=== PATIENT | male | born 1940 | race Caucasian/White ===

== ENCOUNTER 2017-01-29 11:18 | Observation (INO) | payer MEDICARE ==
[2017-01-29] MEDS: Heparin VIAL(*) 5000 UNITS/ML VIAL (FIVE THOUSAND) SUBCUT SCH ×2 (14:36→21:26)
--- NOTE | 2017-01-29 16:52 | HP ---
CC: Flores Dye NP * HISTORY AND PHYSICAL: DATE OF ADMISSION: 01/29/17 PRIMARY CARE PROVIDER: Flores Dye NP CHIEF COMPLAINT: Chest pain. HISTORY OF PRESENT ILLNESS: Mr. Cabrera is a 76-year-old male with a known history of extensive tobacco use quitting in 1984, asthma, and questionable history of diabetes, presented to the emergency room at [facility] with complaints of chest pain. The patient states that at approximately 9:10 on the morning of admission, he began to have pain located in the center of his chest. He states that it radiated up in to his jaw and into the roof of his mouth. He also notes the pain radiated down into his elbows. The patient states that the pain persisted despite 3 nitroglycerin tablets at [facility] and only with morphine did the pain completely go away. He estimates that the pain went away around 1:20 p.m. on the day of admission. The patient denies any associated shortness of breath, nausea, or diaphoresis. The patient states that this past Thursday, he had a similar episode lasting approximately 30 minutes. He described it as not as severe as this episode. The patient's daughter fills in that he may have had a similar episode several months ago. The patient states that 4 to 5 years ago, he had something similar and underwent a stress test that was reportedly negative. PAST MEDICAL HISTORY: 1. Hypertension. 2. Hyperlipidemia. 3. COPD. 4. Neuropathy of the feet. 5. Possible diabetes. PAST SURGICAL HISTORY: 1. Bilateral shoulder surgeries. 2. Left knee arthroscopy. 3. Sinus surgery. 4. Right foot surgery. 5. Cholecystectomy. MEDICATIONS: Unknown. ALLERGIES: PENICILLIN and WARFARIN. FAMILY HISTORY: Mom of some sort of lung disease. Dad at the age of 71 of some sort of cancer. SOCIAL HISTORY: The patient is a former smoker, smoking 3 packs per day x40 years. He does not drink alcohol. He is retired from [employer]. His skein tier of over 30 years recently. He lives alone. He has 2 children. His children, Maylin and Derrick, are his healthcare proxies. REVIEW OF SYSTEMS: A complete 11-system review of systems is obtained. Pertinent positives and negatives are as per HPI and otherwise negative. PHYSICAL EXAMINATION GENERAL: The patient is a well-developed elderly male, sitting in a chair, in no acute distress. VITAL SIGNS: Blood pressure 137/73, pulse 65, respirations 16, temp 98.5, and O2 sat 96% on room air. HEENT: Pupils are equal, they are round. Extraocular muscles are intact. Oropharynx is clear. Oral mucosa is moist. There is no submandibular, cervical , or supraclavicular adenopathy. Thyroid is not enlarged. No thyroid nodules are noted. PULMONARY: Lungs are clear to auscultation bilaterally, though breath sounds are slightly diminished. CARDIAC: Normal S1 and S2. Regular rate and rhythm. I do not appreciate any murmurs. There is trace lower extremity edema. ABDOMEN: Bowel sounds are present. Abdomen is soft, nontender, and nondistended. MUSCULOSKELETAL: There is no cyanosis or clubbing of the digits. There is full active range of motion of all 4 extremities. SKIN: Warm and dry. There are no rashes. NEURO: Cranial nerves II through XII are grossly intact. Sensation is intact to light touch throughout. Strength is 5/5 and symmetric in both upper and lower extremities bilaterally. PSYCH: The patient is alert. He is oriented x3. Affect appears appropriate. LABORATORY DATA/DIAGNOSTIC STUDIES: Sodium 136, potassium 4.4, chloride 102, CO2 27, BUN 14, creatinine 1.11, and glucose 133. Calcium 9.0, magnesium 2.2, bilirubin 0.6, AST 38, ALT 36, alk phos 96. CPK 139. CK-MB 2.6. Troponin 0. BNP 40. Albumin 3.8. INR 0.94. WBC 8.6, hemoglobin 14.1, hematocrit 41.9, platelets 170,000. Chest x-ray, negative per the report from the [facility] provider. EKG pending. ASSESSMENT AND PLAN: Mr. Cabrera is a 76-year-old male with a known history of extensive tobacco use, possible diabetes, and hypertension who presents to the emergency room with complaints of chest pain radiating to the jaw and arms. 1. Chest pain. The patient's story is very concerning for cardiac chest pain. The patient will be admitted and ruled out with serial troponins and EKGs. The patient has not had a troponin since around 9:40 this morning; one will be obtained now as well as an EKG. If the patient is ruled out for acute coronary syndrome, he will undergo chemical nuclear stress test tomorrow. If that is negative, he will go home to follow up with his primary. If he rules in and the stress test is positive, a cardiology evaluation will be sought. 2. Hypertension. The patient's blood pressure is under fair control. He will be maintained on his usual dose of atenolol and enalapril. 3. Neuropathy. The patient will continue on his usual dose of gabapentin. 4. Chronic obstructive pulmonary disease. The patient will continue on Spiriva and Advair. 5. Hyperlipidemia. Continue simvastatin. 6. DVT prophylaxis. According to the Adult Thrombosis Prophylaxis Risk Factor Assessment Guide, the patient has a total risk factor score of 4, making him high risk. He will be placed on heparin 5000 units subcutaneous q.8 hours. 7. Code status is full and again, the patient indicates that his children would be his healthcare proxies. TIME SPENT: Fifty five minutes were spent admitting this patient. [id number]/[facility] #: [id number] DANY
[2017-01-29] MEDS: Gabapentin CAP(*) 300 MG PO SCH (20:13)
[2017-01-29] MEDS ORDERED: Atorvastatin* 10 MG TAB PO SCH (21:00)
[2017-01-30] MEDS: Heparin VIAL(*) 5000 UNITS/ML VIAL (FIVE THOUSAND) SUBCUT SCH ×2 (05:20→14:30)
[2017-01-30] MEDS ORDERED: Regadenoson* 0.4 MG/5 ML SYRINGE ONE (08:50)
[2017-01-30] MEDS ORDERED: Tiotropium CAP.INH* CAP.INH/18 MCG (USE ORDER SET !) INH SCH (09:00)
[2017-01-30] MEDS ORDERED: Atenolol TAB* 50 MG PO SCH (09:00)
[2017-01-30] MEDS ORDERED: Cyanocobalamin TAB* 500 MCG PO SCH (09:00)
[2017-01-30] MEDS ORDERED: Enalapril TAB* 5 MG PO SCH (09:00)
[2017-01-30] MEDS ORDERED: Spiriva Inhaler DEVICE* 1 EACH DEVICE INH ONE (09:00)
[2017-01-30] MEDS ORDERED: Albuterol 2.5 MG/3 ML NEB.SOL* (0.083%) INH PRN (09:26)
[2017-01-30] MEDS ORDERED: Aminophylline IV* 25 MG/ML 10 ML VIAL ONE (10:04)
--- NOTE | 2017-01-30 11:33 | RAD ---
Edited for charges. INDICATION: Chest pain shortness of breath in a patient with a history of hypertension and hypercholesterolemia. COMPARISON: Chest x-ray January 29, 2017 TECHNIQUE: SPECT imaging was performed. Rest images were acquired following the intravenous injection of 10 millicuries of technetium 99m tetrofosmin at 0726 hours. At 1004 hours stress images were acquired following the intravenous administration of 25 millicuries of technetium 99m tetrofosmin. Images are somewhat limited by inability to acquire CT imaging and therefore create attenuated corrected images. The patient received intravenous Lexiscan prior to the stress image acquisition. FINDINGS: There are no defects of the stress-induced or fixed nature. The cardiac chamber size is normal. There are no wall motion abnormalities. The ejection fraction is calculated at 65% during stress. IMPRESSION: No scintigraphic evidence of ischemia or infarction. ASSESSMENT: Low risk MTDD
[2017-01-30 12:21] VITALS: BP 137/64
[2017-01-30] MEDS: Gabapentin CAP(*) 300 MG PO SCH ×2 (12:27→14:30)
--- NOTE | 2017-01-31 05:14 | DS ---
CC: Flores Dye NP * DISCHARGE SUMMARY: DATE OF ADMISSION: 01/29/17 DATE OF DISCHARGE: 01/30/17 PRIMARY CARE PROVIDER: Flores Dye NP PRINCIPAL DIAGNOSIS: Noncardiac chest pain. SECONDARY DIAGNOSES: 1. Hypertension. 2. Hyperlipidemia. 3. Chronic obstructive pulmonary disease. 4. Neuropathy. 5. Possible diabetes. DISCHARGE MEDICATIONS: 1. Simvastatin 20 mg p.o. at bedtime. 2. Spiriva 1 puff inhaled daily. 3. Enalapril 5 mg p.o. daily. 4. Vitamin B12 1000 mcg p.o. daily. 5. Atenolol 50 mg p.o. daily. 6. Gabapentin 600 mg p.o. t.i.d. HOSPITAL COURSE: Mr. Cabrera is a 76-year-old male with a known history of COPD (past tobacco abuse), hypertension, and hyperlipidemia who presented to the emergency room at [place] with complaints of chest pain. The patient was transferred to [facility] to be ruled out for an acute coronary syndrome. The patient was ruled out with serial troponins. He underwent a chemical nuclear stress test on the day of discharge that revealed no defects of a stress induced or fixed nature. Ejection fraction was calculated to be 65 % during stress. At this point, the patient is felt to be stable for discharge home. PHYSICAL EXAMINATION: On the day of discharge, the patient was awake, alert, and oriented; sitting up in the chair, in no acute distress. Cardiac exam revealed a normal S1 and S2 with a regular rate and rhythm. Lungs are clear. Abdomen was soft, nontender, and nondistended, and bowel sounds were present. The patient is ready for discharge home at this point. FOLLOWUP CONCERNS: The patient is being discharged home today, 01/30/17. He is to follow up with Flores Dye in the next 4 to 7 days. ACTIVITY LEVEL: As tolerated. DIET: Low fat. CONDITION ON DISCHARGE: Stable. TIME SPENT: 20 minutes was spent discharging this patient. [id number]/[facility] #: [id number] MTDD
== END 2017-01-30 14:59 | disposition home or self-care (01) ==
LOC: MEDTELE 12:35
PROVIDERS: ADMIT Hospitalist; ATTEND Hospitalist
DX: R07.89 Other chest pain (principal); R68.84 Jaw pain; M79.603 Pain in arm, unspecified; I10 Essential (primary) hypertension; E78.5 Hyperlipidemia, unspecified; J44.9 Chronic obstructive pulmonary disease, unspecified; G62.9 Polyneuropathy, unspecified; Z87.891 Personal history of nicotine dependence
CPT/HCPCS: 36415; 78452; 84484; 93005; 93017; 94640; A9270-GY; A9502; G0378; J0280; J1644; J2785